=== PATIENT | female | born 1985 | race Caucasian/White ===

== ENCOUNTER 2016-09-01 00:52 | Emergency (ER) | payer OTHER ==
[2016-09-01 01:02] VITALS: O2SAT 98
[2016-09-01] MEDS ORDERED: TORAdol 30 mg Injection IM ONE (01:14)
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
[2016-09-01] MEDS ORDERED: TORAdol 30 mg Injection ONE (01:34)
[2016-09-01 01:55] VITALS: BP 122/76; PULSE 82
--- NOTE | 2016-09-01 08:44 | XRAY ---
Indication: Knee pain. No known injury. Comparison: None 3 views of the right knee obtained. No bony, articular, or soft tissue abnormalities.
== END 2016-09-01 01:53 | disposition home or self-care (01) ==
LOC: ED 00:52
DX: S80.01XA Contusion of right knee, initial encounter (principal)
CPT/HCPCS: 73562; 96372; 99284; J1885

== ENCOUNTER 2019-01-07 21:59 | Emergency (ER) | payer OTHER ==
[2019-01-07 22:23] VITALS: O2SAT 98
--- NOTE | 2019-01-07 22:30 | ERPHSYRPT ---
- History of Present Illness Time Seen by Provider: 01/07/19 22:20 Source: patient Exam Limitations: no limitations Patient Subjective Stated Complaint: pt states she has red rash on face and arms after using her sons acne treatment. Triage Nursing Assessment: pt alert and oriented, states she she itching on her arms and legs Physician History: Used skin medication on face; got reaction - red puritic rash - Monday last week. [place] not helping - using several skin rash creams which are also not helping. Timing/Duration: day(s) (5), constant Quality: burning, itchy Severity: moderate Location: face, extremities (right and left forearms) Possible Causes: medications (son's acne medications = clindamycin Phos-Benzoyl 1.2/5 gel) Modifying Factors: Worsens With: antihistamine (not helping) Allergies/Adverse Reactions: meperidine HCl [From Demerol] Allergy (Verified 01/07/19 22:23) Hx Tetanus, Diphtheria Vaccination/Date Given: Yes Hx Influenza Vaccination/Date Given: No Hx Pneumococcal Vaccination/Date Given: No - Review of Systems Constitutional: No Symptoms Eyes: No Symptoms Ears, Nose, & Throat: Other (facial rash) Respiratory: No Symptoms Skin: Rash (fine erythemic rash face and forearms) All Other Systems: Reviewed and Negative - Past Medical History Pertinent Past Medical History: Yes Cardiac History: Other Female Reproductive Disorders: Endometriosis Other Medical History: mitral valve prolapse, POTS syndrome. dysautonomia. - Past Surgical History Past Surgical History: Yes Musculoskeletal: Orthopedic Surgery Female Surgical History: Section, Hysterectomy Other Surgical History: l shoulder, hysterectomy, tonsillectomy - Social History Smoking Status: Current every day smoker How long have you smoked: 16 Exposure to second hand smoke: Yes Drug Use: none Patient Lives Alone: No - Female History Hx Last Menstrual Period: hysterectomy Hx Now: No - Nursing Vital Signs Nursing Vital Signs: Initial Vital Signs Pulse Rate 83 01/07/19 22:07 Respiratory Rate 18 01/07/19 22:07 O2 Sat by Pulse Oximetry 98 01/07/19 22:07 - Physical Exam General Appearance: no apparent distress Eye Exam: PERRL/EOMI, eyes nml inspection Ears, Nose, Throat Exam: normal ENT inspection, pharynx normal Neck Exam: normal inspection, non-tender Respiratory Exam: normal breath sounds, lungs clear Extremity Exam: normal inspection (except for rash face and arms) Neurologic Exam: alert, oriented x 3 Skin Exam: rash (fine erythemic face arms) SpO2 Interpretation: normal SpO2: 98 O2 Delivery: Room Air Ordered Tests: Medication Summary Discontinued Medications Generic Name Dose Route Start Last Admin Trade Name Ye PRN Reason Stop Dose Admin Dexamethasone Sodium Phosphate 8 mg 01/07/19 22:32 01/07/19 22:38 Decadron 4 Mg Inj IM 01/07/19 22:33 8 mg STAT ONE Administration Dexamethasone Sodium Phosphate Confirm 01/07/19 22:36 Decadron 4 Mg Inj Administered 01/07/19 22:37 Dose 8 mg .ROUTE .STK-MED ONE Hydroxyzine HCl 25 mg 01/07/19 23:11 01/07/19 23:20 Atarax 25 Mg PO 01/07/19 23:12 25 mg STAT ONE Administration Hydroxyzine HCl Confirm 01/07/19 23:16 Atarax 25 Mg Administered 01/07/19 23:17 Dose 25 mg .ROUTE .STK-MED ONE - Progress Progress: unchanged Progress Note: 01/08/19 03:11 Stable, NAD, received Decadron - educated will not have immediate improvement with the shot - should be better over a period of days 01/08/19 03:11 - Departure Departure Disposition: Home Clinical Impression: Dermatitis Condition: Good Critical Care Time: No Referrals: ESTELLA LITTLEJOHN [Primary Care Provider] - Additional Instructions: Take Hydroxyzine 25 milligrams three times a day for 5 days. Take Prednisone 20 milligrams (two or 40 milligrams) starting tomorrow for 5 days. Prescriptions: Hydroxyzine HCl 25 mg PO TID #15 tablet Prednisone 40 mg PO DAILY #10 tablet
[2019-01-07] MEDS ORDERED: Decadron 4 MG INJ IM ONE (22:32)
[2019-01-07] MEDS ORDERED: Decadron 4 MG INJ ONE (22:36)
[2019-01-07] MEDS ORDERED: ATARAX 25 MG PO ONE (23:11)
[2019-01-07] MEDS ORDERED: ATARAX 25 MG ONE (23:16)
[2019-01-07 23:25] VITALS: PULSE 63
== END 2019-01-07 23:23 | disposition home or self-care (01) ==
LOC: ED 21:59
DX: L30.9 Dermatitis, unspecified (principal)
CPT/HCPCS: 96372; 99283; 99291; 99292; J1100; A9270-GY

== ENCOUNTER 2019-11-30 04:52 | Emergency (ER) | payer OTHER ==
[2019-11-30] MEDS ORDERED: DELTASONE 20 MG PO ONE (05:25)
[2019-11-30] MEDS ORDERED: BENADRYL 50 MG/ML IM ONE (05:25)
--- NOTE | 2019-11-30 05:25 | ERPHSYRPT ---
- History of Present Illness Time Seen by Provider: 11/30/19 05:17 Source: patient Exam Limitations: no limitations Physician History: The patient is a 34-year-old female who presents with a chief complaint of a possible allergic reaction. Reports experiencing pruritus and redness to her face that is now extending down to her anterior neck. Onset reportedly was last night and she thinks this may be due to her wearing a facemask to protect her from COVID-19 or from bread mold states she reportedly had an allergic reaction to moldy bread in the past. She reported has been taken Benadryl throughout the night with no relief in her symptoms. Her awoke this morning and saw her face and decided that she should come to the emergency department for further evaluation. She also endorsed having some "tightness" in her throat that is been present for the last 3 hours. She denies any bites, stings any use of new cosmetics to include chemical peels, denies use of new make-ups, face washes, or any new detergents. She denies difficulty breathing to include wheezing, shortness of breath, stridor, nausea, vomiting, diarrhea, abdominal pain, lightheadedness and syncope. Timing/Duration: yesterday Quality: burning, itchy, painful Severity: mild Location: face Possible Causes: other (Patient thinks mold from bread or from face mask) Allergies/Adverse Reactions: clindamycin Allergy (Severe, Verified 11/30/19 05:01) Rash meperidine HCl [From Demerol] Allergy (Severe, Verified 11/30/19 05:01) dyspnea Home Medications: Ergocalciferol (Vitamin D2) [Vitamin D2] 1 cap PO WEEKLY 11/30/19 [History] estradioL [Estradiol] 1 tab PO DAILY 11/30/19 [History] Hx Tetanus, Diphtheria Vaccination/Date Given: Yes Hx Influenza Vaccination/Date Given: No Hx Pneumococcal Vaccination/Date Given: No - Review of Systems Constitutional: No Fever, No Chills Eyes: No Symptoms Ears, Nose, & Throat: Throat Swelling, No Ear Pain, No Ear Discharge, No Nose Congestion, No Hoarse, No Painful Swallowing, No Stridor Respiratory: No Cough, No Dyspnea, No Dyspnea on Exertion (BESS), No Stridor, No Wheezing Cardiac: No Chest Pain Abdominal/Gastrointestinal: No Symptoms, No Abdominal Pain, No Nausea, No Vomiting, No Diarrhea Genitourinary Symptoms: No Symptoms Musculoskeletal: No Symptoms Skin: Pruritis, Rash Neurological: No Symptoms Psychological: No Symptoms Endocrine: No Symptoms Hematologic/Lymphatic: No Symptoms Immunological/Allergic: No Symptoms All Other Systems: Reviewed and Negative - Past Medical History Pertinent Past Medical History: Yes Cardiac History: Other Female Reproductive Disorders: Endometriosis Other Medical History: mitral valve prolapse, POTS syndrome. dysautonomia. - Past Surgical History Past Surgical History: Yes Musculoskeletal: Orthopedic Surgery Female Surgical History: Section, Hysterectomy Other Surgical History: l shoulder, hysterectomy, tonsillectomy - Social History Smoking Status: Current every day smoker How long have you smoked: 16 Exposure to second hand smoke: Yes Drug Use: none Patient Lives Alone: No - Nursing Vital Signs Nursing Vital Signs: Initial Vital Signs Temperature 98.1 F 11/30/19 04:53 Pulse Rate 73 11/30/19 04:53 Respiratory Rate 18 11/30/19 04:53 Blood Pressure 123/80 11/30/19 04:53 O2 Sat by Pulse Oximetry 97 11/30/19 04:53 - Physical Exam General Appearance: no apparent distress, alert Eye Exam: PERRL/EOMI, eyes nml inspection, No EOM palsy/anisocoria Ears, Nose, Throat Exam: pharynx normal, moist mucous membranes, other (No angioedema. Normal phonation. ), No pharyngeal erythema, No tonsillar exudate Neck Exam: normal inspection, non-tender, supple Respiratory Exam: normal breath sounds, lungs clear, airway intact, other (The patient was speaking in full sentences and appeared to be in no obvious respiratory distress), No chest tenderness, No respiratory distress Cardiovascular Exam: regular rate/rhythm, normal heart sounds, normal peripheral pulses, murmur, capillary refill <2 sec, No friction rub, No gallop, No tachycardia, No edema Gastrointestinal/Abdomen Exam: soft, No tenderness, No distention Pelvic Exam: not done Rectal Exam: deferred Back Exam: normal inspection Extremity Exam: normal inspection Neurologic Exam: alert, oriented x 3, cooperative, normal mood/affect Skin Exam: normal color, warm, rash, other (Mild erythema/hives to face and neck), No cyanosis, No diaphoresis, No jaundice O2 Delivery: Room Air - Course Nursing assessment & vital signs reviewed: Yes Ordered Tests: Medication Summary Discontinued Medications Generic Name Dose Route Start Last Admin Trade Name Freq PRN Reason Stop Dose Admin Diphenhydramine HCl 25 mg 11/30/19 05:25 11/30/19 05:31 Benadryl 50 Mg/Ml IM 11/30/19 05:26 25 mg STAT ONE Administration Diphenhydramine HCl Confirm 11/30/19 05:29 Benadryl 50 Mg/Ml Administered 11/30/19 05:30 Dose 50 mg .ROUTE .STK-MED ONE Prednisone 40 mg 11/30/19 05:25 11/30/19 05:31 Deltasone 20 Mg PO 11/30/19 05:26 40 mg STAT ONE Administration Prednisone Confirm 11/30/19 05:30 Deltasone 20 Mg Administered 11/30/19 05:31 Dose 40 mg .ROUTE .STK-MED ONE - Progress Progress: improved Progress Note: 11/30/19 05:51 Non-toxic in appearance. Low suspicion for anaphylaxis despite her complaint of her throat feeling tight. The patient was able to speak and swallow without difficulty and had no stridor or obvious respiratory distress. Her complaint is either due to a type I allergic reaction or possible type IV allergic reaction/dermatitis. Etiology is unclear at this time. She was instructed to avoid moldy bread and to use a hypoallergenic facemask from a different supervisor shed workers to avoid future outbreaks/recurrences. In the meantime, I'll treat with IM diphenhydramine and prednisone and once she is feeling better, she'll be discharged home on a short prednisone burst and encouraged to keep taking antihistamines as needed. 11/30/19 06:12 Is reassessed to find that she was feeling better and she is reportedly comfortable with being discharged home. Counseled pt/family regarding: diagnosis - Departure Departure Disposition: Home Clinical Impression: Allergic reaction Condition: Good Critical Care Time: No Referrals: ESTELLA LITTLEJOHN [Primary Care Provider] - Instructions: Hives Prescriptions: Prednisone 10 mg [Deltasone 10 mg] 40 mg PO DAILY 3 Days #12 tablet Diphenhydramine HCl 25 - 50 mg PO Q4-6HPRN PRN #120 tablet PRN Reason: Itching
[2019-11-30] MEDS ORDERED: BENADRYL 50 MG/ML ONE (05:29)
[2019-11-30] MEDS ORDERED: DELTASONE 20 MG ONE (05:30)
[2019-11-30 06:34] VITALS: BP 111/78; PULSE 72; O2SAT 98
== END 2019-11-30 06:28 | disposition home or self-care (01) ==
LOC: ED 04:52
DX: T78.49XA Other allergy, initial encounter (principal); R21 Rash and other nonspecific skin eruption
CPT/HCPCS: 96372; 99283; J1200; A9270-GY

== ENCOUNTER 2020-09-23 22:25 | Emergency (ER) | payer OTHER ==
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
[2020-09-23 22:35] VITALS: O2SAT 98
[2020-09-23] MEDS ORDERED: NORCO 5/325 MG PO ONE (23:34)
[2020-09-23] MEDS ORDERED: DELTASONE 20 MG ONE (23:57)
[2020-09-23] MEDS ORDERED: NORCO 5/325 MG ONE (23:57)
[2020-09-24 00:04] VITALS: BP 105/62; PULSE 74
--- NOTE | 2020-09-24 08:56 | XRAY ---
Indication: Pain, numbness, and tingling one week. No known injury. Comparison: None 3 view right wrist demonstrates mild radiocarpal degenerative joint space narrowing. No other bony, articular, or soft tissue abnormalities.
[2020-09-24] MEDS ORDERED: DELTASONE 20 MG PO ONE (23:34)
== END 2020-09-24 00:11 | disposition home or self-care (01) ==
LOC: ED 22:25
DX: M25.531 Pain in right wrist (principal); M19.90 Unspecified osteoarthritis, unspecified site
CPT/HCPCS: 73110; 99283; A9270-GY

== ENCOUNTER 2021-05-02 02:12 | Emergency (ER) | payer OTHER ==
--- NOTE | 2021-05-02 03:17 | ERPHSYRPT ---
- History of Present Illness Time Seen by Provider: 05/02/21 03:13 Historian: patient Exam Limitations: no limitations Patient Subjective Stated Complaint: Patient states she began having pain in her left upper abdomen 2 days ago. She decided to come to the ED because the pain is now radiating into her left lower back and up under her left breast. Denies N/V, diarrhea, or constipation. Triage Nursing Assessment: Patient ambulated back to ED without difficulties. She is alert and oriented and answering questions appropriately. Abdomen soft, bowel sounds present. Skin intact to area of c/o pain. C/O increased pain with palpation to left upper quad. Physician History: Patient states she began having pain in her left upper abdomen 2 days ago. She decided to come to the ED because the pain is now radiating into her left lower back and up under her left breast. Denies N/V, diarrhea, or constipation. Patient is 35-year-old female without any significant past medical history started having a left upper quadrant abdominal pain 2 days ago which was radiated to the back and lateral side chest wall. Patient denies any nausea vomiting diarrhea abdominal pain in other area. Patient also denies any loss of appetite chest congestion or chest pain. Timing/Duration: yesterday Activities at Onset: none Quality: stabbing Abdominal Pain Onset Location: LUQ Pain Radiation: scapula, chest, back Severity of Pain-Max: mild Severity of Pain-Current: moderate Modifying Factors: Improves With: nothing Associated Symptoms: denies symptoms Previous symptoms: no prior history Allergies/Adverse Reactions: clindamycin Allergy (Severe, Verified 05/02/21 02:35) Rash meperidine HCl [From Demerol] Allergy (Severe, Verified 05/02/21 02:35) dyspnea Home Medications: estradioL [Estradiol] 1 tab PO DAILY 11/30/19 [History] Tramadol HCl 50 mg [Ultram 50 mg] 1 tab PO HS PRN 05/02/21 [History] Hx Tetanus, Diphtheria Vaccination/Date Given: Yes Hx Influenza Vaccination/Date Given: No Hx Pneumococcal Vaccination/Date Given: No Immunizations Up to Date: Yes Travel Risk - International Travel Have you traveled outside of the country in past 3 weeks: No - Coronavirus Screening Are you exhibiting any of the following symptoms?: No - Vaccine Status Have you recieved a Covid-19 vaccination: Yes [place]: Moderna - Vaccination Dates Date of 2cond Vaccination (if applicable): n/a - Review of Systems Constitutional: No Fever, No Chills Eyes: No Symptoms Ears, Nose, & Throat: No Symptoms Respiratory: No Cough, No Dyspnea Cardiac: No Chest Pain, No Edema, No Syncope Abdominal/Gastrointestinal: Abdominal Pain, No Nausea, No Vomiting, No Diarrhea Genitourinary Symptoms: No Dysuria Musculoskeletal: No Back Pain, No Neck Pain Skin: No Rash Neurological: No Dizziness, No Focal Weakness, No Sensory Changes Psychological: No Symptoms Endocrine: No Symptoms All Other Systems: Reviewed and Negative - Past Medical History Pertinent Past Medical History: Yes Neurological History: Other ENT History: No Pertinent History Cardiac History: Other Respiratory History: Asthma Endocrine Medical History: No Pertinent History Musculoskeletal History: Osteoarthritis GI Medical History: No Pertinent History History: No Pertinent History Psycho-Social History: No Pertinent History Female Reproductive Disorders: Endometriosis Other Medical History: 5 SHOULDER SURGERIES TO LEFT SHOULDER, Hypermobility Ehler's Danlos Syndrome, Charcot Radha Tooth Neuropathy type 1A - Past Surgical History Past Surgical History: Yes Neuro Surgical History: No Pertinent History Cardiac: No Pertinent History Respiratory: No Pertinent History Gastrointestinal: Exploratory Laparoscopy Genitourinary: No Pertinent History Musculoskeletal: Orthopedic Surgery Female Surgical History: Section, Hysterectomy Other Surgical History: lt shoulder - Social History Smoking Status: Current every day smoker How long have you smoked: 20 years Exposure to second hand smoke: Yes Drug Use: none Patient Lives Alone: No - Female History Hx Now: No - Nursing Vital Signs Nursing Vital Signs: Initial Vital Signs Temperature 97.8 F 05/02/21 02:36 Pulse Rate 81 05/02/21 02:36 Respiratory Rate 20 05/02/21 02:36 Blood Pressure 120/81 05/02/21 02:36 O2 Sat by Pulse Oximetry 99 05/02/21 02:36 Pain Scale Pain Intensity 7 - Physical Exam General Appearance: no apparent distress, alert Eye Exam: PERRL/EOMI, eyes nml inspection Ears, Nose, Throat Exam: normal ENT inspection, pharynx normal, moist mucous membranes Neck Exam: normal inspection, non-tender, supple, full range of motion Respiratory Exam: normal breath sounds, lungs clear, No respiratory distress Cardiovascular Exam: regular rate/rhythm, normal heart sounds Gastrointestinal/Abdomen Exam: soft, tenderness (left upper quadrant), No mass Back Exam: normal inspection, normal range of motion, No CVA tenderness, No vertebral tenderness Extremity Exam: normal inspection, normal range of motion, pelvis stable Neurologic Exam: alert, oriented x 3, cooperative, normal mood/affect, nml cere bellar function, sensation nml, No motor deficits Skin Exam: normal color, warm, dry SpO2: 99 - Course Nursing assessment & vital signs reviewed: Yes - CT Exams Abdomen/Pelvis CT Interpretation: Tele-radiologist Report (no acute pathology) Ordered Tests: Active Orders 24 hr Category Date Time Status ABDOMEN AND PELVIS W/0 CONTRAS [CT] Stat Exams 05/02/21 03:05 Taken AMYLASE Stat Lab 05/02/21 03:17 Completed CBC W DIFF Stat Lab 05/02/21 03:17 Completed CMP Stat Lab 05/02/21 03:17 Completed LIPASE Stat Lab 05/02/21 03:17 Completed UA W/RFX UR CULTURE Stat Lab 05/02/21 03:08 Completed Medication Summary Generic Name Dose Route Start Last Admin Trade Name Freq PRN Reason Stop Dose Admin Hydromorphone HCl 1 mg 05/02/21 03:24 05/02/21 03:28 Hydromorphone 1 Mg/1ml Inj 1 Mg/Ml Syringe IV 05/07/21 03:23 1 mg Q4H PRN PRN Administration PAIN Discontinued Medications Generic Name Dose Route Start Last Admin Trade Name Freq PRN Reason Stop Dose Admin Ondansetron HCl 4 mg 05/02/21 03:24 05/02/21 03:29 Ondansetron Hcl 4 Mg/2 Ml Vial IV 05/02/21 03:25 4 mg STAT ONE Administration Ondansetron HCl Confirm 05/02/21 03:25 Ondansetron Hcl 4 Mg/2 Ml Vial Administered 05/02/21 03:26 Dose 4 mg .ROUTE .STK-MED ONE Lab/Rad Data: Laboratory Result Diagrams 05/02/21 03:17 05/02/21 03:17 Laboratory Results 05/02/21 05/02/21 05/02/21 Range/Units 03:17 03:17 03:08 WBC 10.6 H (4.0-10.5) K/mm3 RBC 4.19 (4.1-5.4) M/mm3 Hgb 13.2 (12.0-16.0) gm/dl Hct 39.0 (35-47) % MCV 93.1 (78-100) fl MCH 31.5 (26-32) pg MCHC 33.8 (32-36) g/dl RDW 12.8 (11.5-14.0) % Plt Count 205 (150-450) K/mm3 MPV 11.1 H (7.5-11.0) fl Gran % 61.0 (36.0-66.0) % Eos # (Auto) 0.17 (0-0.5) Absolute Lymphs (auto) 3.20 (1.0-4.6) Absolute Monos (auto) 0.75 (0.0-1.3) Lymphocytes % 30.2 (24.0-44.0) % Monocytes % 7.1 (0.0-12.0) % Eosinophils % 1.6 (0.00-5.0) % Basophils % 0.1 (0.0-0.4) % Absolute Granulocytes 6.47 (1.4-6.9) Basophils # 0.01 (0-0.4) Sodium 138 (137-145) mmol/L Potassium 3.7 (3.5-5.1) mmol/L Chloride 102 (98-107) mmol/L Carbon Dioxide 27 (22-30) mmol/L Anion Gap 12.3 (5-15) MEQ/L BUN 9 (7-17) mg/dL Creatinine 0.70 (0.52-1.04) mg/dL Estimated GFR > 60.0 ML/MIN Glucose 92 (74-106) mg/dL Calcium 9.1 (8.4-10.2) mg/dL Total Bilirubin 0.40 (0.2-1.3) mg/dL AST 20 (14-36) U/L ALT 11 (0-35) U/L Alkaline Phosphatase 151 H (38-126) U/L Serum Total Protein 7.3 (6.3-8.2) g/dL Albumin 4.3 (3.5-5.0) g/dL Amylase 77 (30-110) U/L Lipase 114 (23-300) U/L Urine Color STRAW (YELLOW) Urine Appearance CLEAR (CLEAR) Urine pH 6.0 (5-6) Ur Specific [place] 1.006 (1.005-1.025) Urine Protein NEGATIVE (Negative) Urine Ketones NEGATIVE (NEGATIVE) Urine Blood SMALL (0-5) Tunde/ul Urine Nitrite NEGATIVE (NEGATIVE) Urine Bilirubin NEGATIVE (NEGATIVE) Urine Urobilinogen NEGATIVE (0-1) mg/dL Ur Leukocyte Esterase NEGATIVE (NEGATIVE) Urine WBC (Auto) 0-2 (0-5) /HPF Urine RBC (Auto) 0-2 (0-2) /HPF U Epithel Cells (Auto) RARE (FEW) /HPF Urine Bacteria (Auto) RARE (NEGATIVE) /HPF Urine Mucus (Auto) SLIGHT (NEGATIVE) /HPF Urine Culture Reflexed NO (NO) Urine Glucose NEGATIVE (NEGATIVE) mg/dL - Progress Progress: improved, pain not gone completely Counseled pt/family regarding: lab results, diagnosis, need for follow-up, rad results - Departure Departure Disposition: Home Clinical Impression: Abdominal pain Qualifiers: Abdominal location: left upper quadrant Qualified Code(s): R10.12 - Left upper quadrant pain Condition: Stable Critical Care Time: Yes Critical Care Time(excluding separately billable procedures): Critical 30-74 mins Referrals: ESTELLA LITTLEJOHN [Primary Care Provider] - Follow up/PCP as directed Instructions: Acute Abdomen (Belly Pain), Adult (DC) Additional Instructions: Discharge/Care Plan ALONSODEJAH DYE was seen on 05/02/21 in the Emergency Room. The patient was counseled regarding Diagnosis,Lab results, Imaging studies, need for follow up and when to return to the Emergency Room. Prescriptions given: Discharge Note I have spoken with the patient and/or caregivers. I have explained the patient's condition, diagnosis and treatment plan based on the information available to me at this time. I have answered the patient's and/or caregiver's questions and addressed any concerns. The patient and/or caregivers have as good understanding of the patient's diagnosis, condition and treatment plan as can be expected at this point. The vital signs have been stable. The patient's condition is stable and appropriate for discharge from the emergency department. The patient will pursue further outpatient evaluation with the primary care physician or other designated or consulting physician as outlined in the discharge instructions. The patient and/or caregivers are agreeable to this plan of care and follow-up instructions have been explained in detail. The patient and/or caregivers have received these instruction. The patient/and or caregivers are aware that any significant change in condition or worsening of symptoms should prompt an immediate return to this or the closest emergency department or call 911. DEJAH GUPTA was seen on 05/02/21 n the Emergency Room. At that time you were treated for an emergent condition, during your visit Laboratory, Radiology and/or other procedures may have been ordered. It is very important that you follow-up with your Primary Care Physician ESTELLA LITTLEJOHN within the next 24-48 hours to review your Emergency Room visit and the final results of testing that was ordered. Some test results such as Urine Cultures, Blood Cultures, and other cultures if ordered will not be finalized for 24-48 hours. If you do not have a Primary Care Provider please call the medical records department at [phone] ext [phone] to obtain a copy of your results or you may sign into our patient portal to obtain these results by visiting us @ [email or web address] and completing the following steps: 1. Click on the Patient Portal link 2. Click the Patient Self Enrollment Link to complete the enrollment form and entering your 3. Once the enrollment form is completed you will receive an email with a temporary ID and password at the email address you provided. 4. Next choose a user name and password. Your user name must be at least 4 characters long and your password must be at least 4 characters long. 5. Choose a security question from the list and provide your answer to the question. If you already have signed into the Health Portal you may access your Health Care Information 31/10 by the following steps: 1. Login to our website @ [email or web address] 2. Enter your original user name and password. FAQS The [facility] Health Portal is an online tool that contains your Lab Results, Radiology Reports, Visit History, Discharge Instructions and Health Summary Lab and Radiology Results will not be available for 72 hours on the portal. The Portal is a secure site, passwords are encryted and URLs are re-written so they cannot be copied and pasted. You and authorized family members are the only ones who can access your Portal. Also there is a timeout feature that protects your information if you leave the Portal page open. If you have technical difficulty please use the Contact Us link on the page this will allow you to submit any questions you have regarding the Portal or you may contact the Medical Record Department at [phone] ext [phone].
[2021-05-02] MEDS ORDERED: Zofran 4 MG/2 ML VIAL IV ONE (03:24)
[2021-05-02] MEDS ORDERED: Hydromorphone 1 mg/ml Injection IV PRN (03:24)
[2021-05-02] MEDS ORDERED: Zofran 4 MG/2 ML VIAL ONE (03:25)
[2021-05-02] MEDS ORDERED: Hydromorphone 1 mg/ml Injection ONE (03:25)
[2021-05-02 03:28] LABS: Absolute Neutrophil Ct (ANC) 6.47 (1.4-6.9); Basophil (Absolute #) 0.01 (0-0.4); Eosinophil % 1.6 % (0.00-5.0); Eosinophil (Absolute #) 0.17 (0-0.5); Hemoglobin 13.2 gm/dl (12.0-16.0); Lymphocytes % 30.2 % (24.0-44.0); Mean Cell Volume 93.1 fl (78-100); Mean Corpuscular Hemoglobin 31.5 pg (26-32); Mean Corpuscular Hgb Concent. 33.8 g/dl (32-36); Mean Platelet Volume 11.1 fl (7.5-11.0); Monocyte (Absolute #) 0.75 (0.0-1.3); Monocytes % 7.1 % (0.0-12.0); Platelet Count 205 K/mm3 (150-450); Red Blood Count 4.19 M/mm3 (4.1-5.4); Red Cell Distribution Width 12.8 % (11.5-14.0); White Blood Count 10.6 K/mm3 (4.0-10.5)
[2021-05-02 03:34] LABS: ALBUMIN 4.3 g/dL (3.5-5.0); ALKALINE PHOSPHATASE 151 U/L (38-126); AMYLASE 77 U/L (30-110); ANION GAP 12.3 MEQ/L (5-15); BLOOD UREA NITROGEN 9 mg/dL (7-17); CHLORIDE 102 mmol/L (98-107); Calcium 9.1 mg/dL (8.4-10.2); Carbon Dioxide 27 mmol/L (22-30); EST GLOMERULAR FILTRATION RATE > 60.0 ML/MIN; Glucose 92 mg/dL (74-106); LIPASE 114 U/L (23-300); Potassium 3.7 mmol/L (3.5-5.1); SGOT/AST 20 U/L (14-36); SGPT/ALT 11 U/L (0-35); SODIUM 138 mmol/L (137-145); Total Protein 7.3 g/dL (6.3-8.2)
[2021-05-02 03:34] LABS: Appearance CLEAR (CLEAR); Bacteria RARE /HPF (NEGATIVE); Bilirubin NEGATIVE (NEGATIVE); Blood SMALL Ery/ul (0-5); Epithelial Cells RARE /HPF (FEW); Glucose NEGATIVE (NEGATIVE); Ketones NEGATIVE (NEGATIVE); Leukocyte Esterase NEGATIVE (NEGATIVE); Mucus SLIGHT /HPF (NEGATIVE); Nitrite NEGATIVE (NEGATIVE); Protein,Urine Dip NEGATIVE (Negative); RBC 0-2 /HPF (0-2); Specific Gravity 1.006 (1.005-1.025); Urobilinogen NEGATIVE mg/dL (0-1); WBC 0-2 /HPF (0-5)
[2021-05-02 04:46] VITALS: BP 100/63; PULSE 80; O2SAT 98
--- NOTE | 2021-05-02 08:54 | XRAY ---
Indication: Left upper quadrant quadrant pain. Multiple contiguous axial images obtained through the abdomen and pelvis without contrast. Comparison: September 11, 2020. Lung bases remain clear. Heart not enlarged. Noncontrasted stomach and bowel loops nonobstructed again with normal appendix. Again hysterectomy with right lower quadrant surgical clip. No free fluid/air. Contracted gallbladder without gallstones or biliary distention. Remaining liver, gallbladder, pancreas, spleen, adrenal glands, kidneys, ureters, bladder, and aorta are unremarkable for noncontrast exam. Osseous structures intact. No ventral or inguinal hernias. Impression: CT abdomen/pelvis without contrast exam is again negative. Comment: Preliminary interpretation made by [facility]. No critical discrepancy.
== END 2021-05-02 04:46 | disposition home or self-care (01) ==
LOC: ED 02:12
DX: R10.12 Left upper quadrant pain (principal); Q79.62 Hypermobile Ehlers-Danlos syndrome; G60.0 Hereditary motor and sensory neuropathy; Z72.0 Tobacco use; Z79.891 Long term (current) use of opiate analgesic
CPT/HCPCS: 36415; 74176; 80053; 81001; 82150; 83690; 85025; 96374; 96375; 99284; 99291; J1170; J2405

== ENCOUNTER 2023-08-06 00:32 | Emergency (ER) | payer OTHER ==
[2023-08-06 00:58] VITALS: TEMP 97
[2023-08-06 01:32] VITALS: O2SAT 96
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
[2023-08-06 01:41] VITALS: BP 101/70; PULSE 84; RESP 16
--- NOTE | 2023-08-06 07:12 | XRAY ---
Indication: Pain following injury. Comparison: November 11, 2021 3 nonweightbearing views left foot obtained. Again no bony, articular, or soft tissue abnormalities.
== END 2023-08-06 01:43 | disposition home or self-care (01) ==
LOC: ED 00:32
DX: S90.32XA Contusion of left foot, initial encounter (principal); W20.8XXA Other cause of strike by thrown, projected or falling object, initial encounter; Q79.60 Ehlers-Danlos syndrome, unspecified; Z79.891 Long term (current) use of opiate analgesic; Z79.899 Other long term (current) drug therapy; Z72.0 Tobacco use
CPT/HCPCS: 73630; 99283

== ENCOUNTER 2024-04-16 23:43 | Emergency (ER) | payer OTHER ==
[2024-04-17 00:06] VITALS: TEMP 97.6
[2024-04-17] MEDS ORDERED: Pepcid 20 MG VIAL IV ONE (01:05)
[2024-04-17] MEDS ORDERED: solu-MEDROL ONE (01:05)
[2024-04-17] MEDS ORDERED: Sterile H2O 10 ml IJ ONE (01:05)
[2024-04-17] MEDS ORDERED: BENADRYL 50 MG/ML ONE (01:05)
[2024-04-17] MEDS: BENADRYL 50 MG/ML IV ONE (01:15)
[2024-04-17] MEDS: solu-MEDROL 125 MG, Sterile H2O 10 ml 2 ML IV ONE (01:16)
[2024-04-17] MEDS: Pepcid 20 MG VIAL IV ONE (01:16)
[2024-04-17 02:07] VITALS: BP 114/75; PULSE 83; RESP 16; O2SAT 97
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
[2024-04-17] MEDS ORDERED: Eye-Stream Solution ONE ×2 (02:44→02:52)
[2024-04-17] MEDS: Eye-Stream Solution OP ONE (02:53)
== END 2024-04-17 02:56 | disposition home or self-care (01) ==
LOC: ED 23:43
DX: T78.40XA Allergy, unspecified, initial encounter (principal); R21 Rash and other nonspecific skin eruption; Z79.52 Long term (current) use of systemic steroids; Z79.891 Long term (current) use of opiate analgesic; Z79.899 Other long term (current) drug therapy; Z72.0 Tobacco use
CPT/HCPCS: 96374; 96375; 99284; J1200; J2919; A9270-GY

== ENCOUNTER 2024-04-19 20:59 | Emergency (ER) | payer OTHER ==
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
[2024-04-19 21:23] VITALS: PULSE 91; RESP 18; TEMP 97.4
[2024-04-19 22:37] LABS: ANION GAP 8.1 MEQ/L (5-15); Calcium 8.7 mg/dL (8.4-10.2); Creatinine 1 0.77 mg/dL (0.52-1.04); EST GLOMERULAR FILTRATION RATE 100.6 ML/MIN; Potassium 3.9 mmol/L (3.5-5.1)
[2024-04-19] MEDS ORDERED: VISTARIL 100MG/2ML IM ONE (22:38)
[2024-04-19] MEDS ORDERED: solu-MEDROL ONE (22:38)
[2024-04-19] MEDS ORDERED: Sterile H2O 10 ml IJ ONE (22:38)
[2024-04-19] MEDS: VISTARIL 100MG/2ML IM ONE (22:39)
[2024-04-19] MEDS: solu-MEDROL 125 MG, Sterile H2O 10 ml 2 ML IM ONE (22:39)
[2024-04-19 23:07] VITALS: BP 127/85; O2SAT 96
[2024-04-19] MEDS ORDERED: ATARAX 25 MG ONE (23:09)
[2024-04-19] MEDS: ATARAX 25 MG PO ONE (23:13)
== END 2024-04-19 23:14 | disposition home or self-care (01) ==
LOC: ED 20:59
DX: L29.9 Pruritus, unspecified (principal); L50.9 Urticaria, unspecified; Z79.52 Long term (current) use of systemic steroids; Z79.899 Other long term (current) drug therapy; Z72.0 Tobacco use
CPT/HCPCS: 36415; 80048; 83735; 85652; 93005; 96372; 99284; J2919; J3410; A9270-GY